=== PATIENT | female | born 1975 | race Hispanic/Latino ===

== ENCOUNTER → 2021-01-02 | Outpatient (CLI) | payer BC | LOC: US 10:56 | PROVIDERS: ATTEND Internal Medicine Gastroenterology | DX: R89.9 Unspecified abnormal finding in specimens from other organs, systems and tissues (principal) | CPT/HCPCS: 76700 ==

== ENCOUNTER 2021-01-19 10:08 | Emergency (ER) | payer BC ==
[~2021-01-19] VITALS: Ht 152.4 cm; Wt 81.6 kg
[2021-01-19 10:58] LABS: BASOPHILS % 0.4 % (0.0-1.0); EOSINOPHILS # (AUTO) 0.6 (0.0-0.4); EOSINOPHILS % 8.2 % (0.0-6.0); HEMATOCRIT 31.5 % (34.2-44.1); HEMOGLOBIN 9.5 g/dL (12.0-16.0); LYMPHOCYTES # (AUTO) 1.3 (1.0-3.2); LYMPHOCYTES % 18.9 % (18.0-39.1); MEAN CORPUSCULAR HEMOGLOBIN 23.2 pg (28-32); MEAN CORPUSCULAR HGB CONC 30.2 g/dL (31-35); MEAN CORPUSCULAR VOLUME 76.8 fL (81-99); MONOCYTES # (AUTO) 0.5 (0.2-0.8); MONOCYTES % 7.3 % (4.4-11.3); NEUTROPHILS # (AUTO) 4.6 (2.1-6.9); NEUTROPHILS % 64.9 % (38.7-80.0); PLATELET COUNT 176 x10e3/uL (140-360); RED CELL DISTRIBUTION WIDTH 14.5 % (11.7-14.4)
[2021-01-19] MEDS ORDERED: FUROSEMIDE INJ 10 MG/ML 4 ML VIAL IV ONE (11:00)
[2021-01-19 11:15] LABS: ALBUMIN 1.5 g/dL (3.5-5.0); ALBUMIN/GLOBULIN RATIO 0.4 (0.8-2.0); ANION GAP 13.1 mmol/L (8-16); CALCIUM 7.7 mg/dL (8.4-10.2); CREATININE, SERUM 0.79 mg/dL (0.57-1.11); POTASSIUM 3.1 mmol/L (3.5-5.1)
[2021-01-19 11:21] LABS: INR 0.93; PROTHROMBIN TIME 13.2 seconds (11.9-14.5)
[2021-01-19] MEDS ORDERED: TRAMADOL HCL 50 MG TAB PO ONE (11:30)
[2021-01-19] MEDS ORDERED: ACETAMINOPHEN 325 MG TAB PO ONE (11:30)
[2021-01-19] MEDS ORDERED: POTASSIUM CHLORIDE 20 MEQ TAB CR PO STA (13:12)
[2021-01-19] MEDS ORDERED: K-DUR10 MEQ PO (13:20)
[2021-01-19] MEDS ORDERED: LASIX40 MG PO (13:20)
[2021-01-19 13:47] VITALS: BP 150/106
== END 2021-01-19 13:50 | disposition home or self-care (01) ==
LOC: ER 10:15
DX: R60.9 Edema, unspecified (principal); E11.65 Type 2 diabetes mellitus with hyperglycemia
CPT/HCPCS: 36415; 71045; 80053; 83880; 84484; 85025; 85379; 85610; 93970; 99284; J1940

== ENCOUNTER 2021-06-12 21:45 | Emergency (ER) | payer BC ==
[~2021-06-12] VITALS: Ht 152.4 cm; Wt 86.2 kg
[~2021-06-12 21:45] MED LIST: K-DUR10 MEQ PO; LASIX40 MG PO
[2021-06-12] MEDS ORDERED: ACETAMINOPHEN 325 MG TAB PO ONE (22:00)
[2021-06-12] MEDS ORDERED: ACETAMINOPHEN 325 MG TAB ONE (22:05)
[2021-06-12] MEDS ORDERED: CEFTRIAXONE 1 GM in SODIUM CHLORIDE 0.9% 50ML 50 ML IV ONE (23:00)
[2021-06-12 23:17] LABS: BASOPHILS % 0.3 % (0.0-1.0); EOSINOPHILS % 0.2 % (0.0-6.0); HEMATOCRIT 25.9 % (34.2-44.1); HEMOGLOBIN 8.1 g/dL (12.0-16.0); LYMPHOCYTES # (AUTO) 0.5 (1.0-3.2); MEAN CORPUSCULAR HEMOGLOBIN 24.4 pg (28-32); MEAN CORPUSCULAR HGB CONC 31.3 g/dL (31-35); MONOCYTES # (AUTO) 0.5 (0.2-0.8); MONOCYTES % 4.5 % (4.4-11.3); NEUTROPHILS # (AUTO) 9.6 (2.1-6.9); NEUTROPHILS % 89.7 % (38.7-80.0); PLATELET COUNT 218 x10e3/uL (140-360); RED BLOOD COUNT 3.32 x10e6/uL (3.6-5.1)
[2021-06-12 23:20] LABS: CLARITY,URINE CLOUDY (CLEAR); COLOR,URINE YELLOW (YELLOW); LEUKOCYTE ESTERASE ,URINE TRACE (NEGATIVE); NITRITE,URINE NEGATIVE (NEGATIVE); PROTEIN,URINE DIPSTICK >=300 (NEGATIVE)
[2021-06-12 23:21] LABS: KETONES,URINE NEGATIVE (NEGATIVE); URINE UROBILINOGEN 0.2 mg/dL (0.2 - 1)
[2021-06-12 23:25] LABS: BACTERIA,URINE MANY /HPF; EPITHELIAL CELLS,URINE MODERATE /LPF; WBC,URINE (MAN) 21-50 /HPF (0-5)
[2021-06-12 23:37] LABS: ALBUMIN 1.3 g/dL (3.5-5.0); ALBUMIN/GLOBULIN RATIO 0.4 (0.8-2.0); ANION GAP 10.3 mmol/L (8-16); CALCIUM 7.4 mg/dL (8.4-10.2); CREATININE, SERUM 1.03 mg/dL (0.57-1.11)
[2021-06-12 23:39] LABS: POTASSIUM 2.3 mmol/L (3.5-5.1)
[2021-06-12] MEDS ORDERED: POTASSIUM CHLORIDE 20 MEQ TAB CR PO STA (23:39)
[2021-06-12 23:43] LABS: CREATINE KINASE MB 4.3 ng/mL (0-5.0)
[2021-06-13 01:04] VITALS: BP 126/67
== END 2021-06-13 01:06 | disposition home or self-care (01) ==
LOC: ER 21:49
DX: R50.9 Fever, unspecified (principal); N39.0 Urinary tract infection, site not specified; R60.9 Edema, unspecified; E87.6 Hypokalemia; Z20.822 Contact with and (suspected) exposure to COVID-19; R94.31 Abnormal electrocardiogram [ECG] [EKG]
CPT/HCPCS: 36415; 71045; 80053; 81001; 82550; 82553; 83605; 84484; 85025; 87040; 87086; 93005; 99284; J0696; U0002

== ENCOUNTER 2022-02-14 08:39 | Emergency (ER) | payer BC ==
[~2022-02-14] VITALS: Ht 152.4 cm; Wt 86.2 kg
[2022-02-14] MEDS ORDERED: AZITHROMYCIN250 MG PO (10:16)
[2022-02-14 10:51] VITALS: BP 132/77
== END 2022-02-14 10:52 | disposition home or self-care (01) ==
LOC: ER 08:50
DX: R05.9 Cough, unspecified (principal); J18.9 Pneumonia, unspecified organism; I10 Essential (primary) hypertension; E11.9 Type 2 diabetes mellitus without complications; Z20.822 Contact with and (suspected) exposure to COVID-19
CPT/HCPCS: 0223U; 36415; 71046; 87400; 99283

== ENCOUNTER 2022-04-19 11:08 | Emergency (ER) | payer BC ==
[~2022-04-19] VITALS: Ht 152.4 cm; Wt 86.2 kg
[~2022-04-19 11:08] MED LIST changes: +AZITHROMYCIN250 MG PO
[2022-04-19] MEDS ORDERED: HYDROCODONE/APAP 7.5MG-325MG 1 EA TAB PO ONE (12:45)
[2022-04-19] MEDS ORDERED: CELEBREX100 MG PO (13:36)
== END 2022-04-19 13:45 | disposition home or self-care (01) ==
LOC: ER 11:25
DX: M23.92 Unspecified internal derangement of left knee (principal); E11.9 Type 2 diabetes mellitus without complications; I11.0 Hypertensive heart disease with heart failure; I50.9 Heart failure, unspecified; Z88.8 Allergy status to other drugs, medicaments and biological substances; Z86.16 Personal history of COVID-19; Z87.891 Personal history of nicotine dependence
CPT/HCPCS: 99283